=== PATIENT | male | born 1955 | race Caucasian/White ===

== ENCOUNTER 2019-06-20 09:22 | Inpatient (IN) | payer OTHER ==
[~2019-06-20] VITALS: Ht 175.3 cm; Wt 115.0 kg
[2019-06-20] MEDS ORDERED: METO-99 PO (09:50)
[2019-06-20] MEDS ORDERED: MELO15TA24 PO (09:50)
[2019-06-20] MEDS ORDERED: ALLO300T PO (09:50)
[2019-06-20] MEDS ORDERED: ATOR10TA9 PO (09:50)
[2019-06-20] MEDS ORDERED: AMLO10TA8 PO (09:50)
[2019-06-20] MEDS ORDERED: LISI5TAB7 PO (09:50)
[2019-06-20] MEDS ORDERED: GLIP5TAB10 PO (09:50)
--- NOTE | 2019-06-20 09:51 | NUR ---
Patient ambulatory with steady gait from triage. Reports RLQ x 3 days with decreased appetite. Denies fevers. NAD noted at time of assessment
[2019-06-20] MEDS ORDERED: ONDANSETRON 2MG/ML, 2ML IVPush ONE (10:30)
[2019-06-20] MEDS ORDERED: SODIUM CHLORIDE 0.9% 1,000ML IVBOLUS ONE ×2 (10:30→11:30)
[2019-06-20] MEDS ORDERED: HYDROmorphone 2 MG/ML, 1ML IVPush PRN (10:30)
[2019-06-20] MEDS ORDERED: SODIUM CHLORIDE FLUSH 10ML SYR IVF ONE (10:30)
[2019-06-20 10:55] LABS: MEAN CORPUSCULAR HEMOGLOBIN 30.8 pg (27.5-34.5); MEAN CORPUSCULAR HGB CONC 33.3 g/dL (33.2-36.2); MEAN CORPUSCULAR VOLUME 92.5 fL (81-97); MEAN PLATELET VOLUME 10.5 fL (7.4-10.4); PLATELET COUNT 125 x10^3/uL (130-400); RED CELL DISTRIBUTION WIDTH 14.8 % (9.4-14.8)
[2019-06-20] MEDS ORDERED: HYDROmorphone 1 MG/ML, 1ML VIAL ONE (10:59)
[2019-06-20] MEDS ORDERED: ONDANSETRON 2MG/ML, 2ML ONE (10:59)
[2019-06-20 11:06] LABS: ALANINE AMINOTRANSFERASE 23 U/L (12-78); ALBUMIN 3.7 g/dL (3.4-5.0); ANION GAP 10 mmol/L (5-15); CALCIUM 10.4 mg/dL (8.5-10.1); CHLORIDE 100 mmol/L (98-107); CREATININE 1.94 mg/dL (0.7-1.3)
[2019-06-20 11:08] LABS: ALKALINE PHOSPHATASE 79 U/L (45-117); BILIRUBIN,TOTAL 1.6 mg/dL (0.2-1.0); TOTAL PROTEIN 7.9 g/dL (6.4-8.2)
[2019-06-20 11:14] LABS: INTERNATIONAL NORMALIZED RATIO 1.15 (0.93-1.1)
[2019-06-20 11:17] LABS: MD YES
[2019-06-20 11:19] LABS: <PLATELET ESTIMATE> ADEQUATE; <RBC MORPHOLOGY> NORMAL; BAND#(MANUAL) 2.24 x10^3/uL; BANDS%(MANUAL) 15 % (0-7); LARGE PLATELETS 1+; LYMPH#(MANUAL) 1.19 x10^3/uL (1-3.4); LYMPHS% (MANUAL) 8 % (22-44); MONOS#(MANUAL) 0.15 x10^3/uL (0.3-2.7); MONOS% (MANUAL) 1 % (2-9); SEG#(MANUAL) 11.32 x10^3/uL (1.8-6.8); SEGS% (MANUAL) 76 % (42-75)
--- NOTE | 2019-06-20 11:28 | NUR ---
Patient O2 was 84% on RA, placed on 4L NC improved to 94% provider improved. IV infusing Patient watching football. NAD
[2019-06-20] MEDS ORDERED: PIPERACILLIN/TAZO/PMX 3.375GM 50 ML ONE (12:17)
[2019-06-20] MEDS ORDERED: OMNIPAQUE 350 MG/ML, 100ML BOTTLE ONE (12:18)
[2019-06-20] MEDS ORDERED: VANCOMYCIN PER PHARMACY MC ONE (12:30)
[2019-06-20] MEDS ORDERED: PIPERACILLIN/TAZO/PMX 3.375GM 50 ML IVPB ONE (12:30)
[2019-06-20] MEDS ORDERED: VANCOMYCIN 2,100 MG in SODIUM CHLORIDE 0.9% 500 ML IV ONE (13:00)
--- NOTE | 2019-06-20 13:17 | NUR ---
Patient resting in bed, watching football. NAD noted.
[2019-06-20] MEDS ORDERED: GUAIFENESIN/DM 200-20MG, 10ML UDC PO PRN (13:30)
[2019-06-20] MEDS ORDERED: ACETAMINOPHEN 650 MG SUPP PR PRN (13:30)
[2019-06-20] MEDS ORDERED: GLUCAGON 1 MG IM PRN (13:30)
[2019-06-20] MEDS ORDERED: ONDANSETRON 2MG/ML, 2ML IVPB PRN (13:30)
[2019-06-20] MEDS ORDERED: ONDANSETRON 2MG/ML, 2ML IVPush PRN (13:30)
[2019-06-20] MEDS ORDERED: LABETALOL 5 MG/ML SYR. (IV ONLY) IVPush PRN (13:30)
[2019-06-20] MEDS ORDERED: DEXTROSE 50%, 50ML SYRINGE IVPush PRN (13:30)
[2019-06-20] MEDS ORDERED: ACETAMINOPHEN 325 MG TABLET PO PRN (13:30)
[2019-06-20] MEDS ORDERED: DEXTROSE 4 GM TAB.CHEW PO PRN (13:30)
[2019-06-20] MEDS ORDERED: DOCUSATE 100 MG CAPSULE PO PRN (13:30)
[2019-06-20] MEDS ORDERED: PHARMACY MAY ADJ FOR RENAL FX MC PRN ×2 (13:30)
--- NOTE | 2019-06-20 13:57 | NUR ---
Resting in bed NAD watching football
[2019-06-20] MEDS ORDERED: PIPERACILLIN/TAZO/PMX 4.5GM 100 ML IVPB SCH (14:00)
--- NOTE | 2019-06-20 14:04 | NUR ---
Report given to Caden OJEDA on 4N
--- NOTE | 2019-06-20 14:30 | NUR ---
Transferred to floor with tech
[2019-06-20 14:43] VITALS: BP 120/74
[2019-06-20] MEDS: DOXYCYCLINE 100 MG in DEXTROSE 5% 250 ML IV SCH (15:26)
[2019-06-20] MEDS: morphine SULFATE 10 MG/ML, 1ML IVPush PRN ×2 (15:26→20:03)
[2019-06-20] MEDS: INSULIN LISPRO 100 UNITS/ML, PEN SQ-INSULIN SCH ×2 (16:11→19:59)
[2019-06-20] MEDS: PIPERACILLIN/TAZO/PMX 4.5GM 100 ML IVPB SCH ×2 (16:48→23:16)
[2019-06-20] MEDS: D5%-0.45% NACL 1,000 ML IV SCH (16:48)
[2019-06-20] MEDS: SODIUM CHLORIDE FLUSH 10ML SYR IVF SCH (20:00)
[2019-06-20 20:03] VITALS: BP 93/62
[2019-06-21 00:14] VITALS: BP 98/64
[2019-06-21] MEDS: DOXYCYCLINE 100 MG in DEXTROSE 5% 250 ML IV SCH ×2 (01:13→12:59)
[2019-06-21] MEDS: D5%-0.45% NACL 1,000 ML IV SCH ×2 (03:56→12:59)
[2019-06-21 05:06] LABS: MEAN CORPUSCULAR HEMOGLOBIN 31.1 pg (27.5-34.5); MEAN CORPUSCULAR VOLUME 94.3 fL (81-97); MEAN PLATELET VOLUME 10.2 fL (7.4-10.4); PLATELET COUNT 92 x10^3/uL (130-400); RED CELL DISTRIBUTION WIDTH 14.8 % (9.4-14.8)
[2019-06-21 05:12] LABS: ALANINE AMINOTRANSFERASE 21 U/L (12-78); ALBUMIN 2.9 g/dL (3.4-5.0); ANION GAP 6 mmol/L (5-15); CALCIUM 8.3 mg/dL (8.5-10.1); CHLORIDE 106 mmol/L (98-107); CREATININE 1.96 mg/dL (0.7-1.3)
[2019-06-21 05:15] LABS: ALKALINE PHOSPHATASE 53 U/L (45-117); BILIRUBIN,TOTAL 1.7 mg/dL (0.2-1.0); TOTAL PROTEIN 6.6 g/dL (6.4-8.2)
[2019-06-21] MEDS: PIPERACILLIN/TAZO/PMX 4.5GM 100 ML IVPB SCH ×4 (05:43→23:23)
[2019-06-21 05:55] LABS: BAND#(MANUAL) 0.26 x10^3/uL; BANDS%(MANUAL) 2 % (0-7); LYMPH#(MANUAL) 1.58 x10^3/uL (1-3.4); LYMPHS% (MANUAL) 12 % (22-44); MD YES; MONOS#(MANUAL) 0.26 x10^3/uL (0.3-2.7); MONOS% (MANUAL) 2 % (2-9); SEG#(MANUAL) 11.09 x10^3/uL (1.8-6.8); SEGS% (MANUAL) 84 % (42-75)
[2019-06-21 05:57] LABS: <PLATELET ESTIMATE> DECREASED; ANISOCYTOSIS 1+; POLYCHROMASIA 1+; TEAR DROPS 1+
[2019-06-21 05:58] LABS: <PLT MORPHOLOGY> NORMAL PLT MORPH
[2019-06-21] MEDS: INSULIN LISPRO 100 UNITS/ML, PEN SQ-INSULIN SCH ×4 (07:00→21:50)
[2019-06-21 08:28] VITALS: BP 111/74
[2019-06-21] MEDS: SODIUM CHLORIDE FLUSH 10ML SYR IVF SCH ×2 (09:00→21:00)
[2019-06-21 12:15] VITALS: BP 114/72
[2019-06-21] MEDS ORDERED: PHARMACY MAY ADJ FOR RENAL FX MC PRN (14:30)
[2019-06-21] MEDS ORDERED: hydrALAzine 20 MG/ML, 1ML IV PRN (15:00)
[2019-06-21] MEDS: D5%-0.45NACL+KCL 20MEQ 1,000 ML IV SCH (17:16)
[2019-06-21 18:23] LABS: CHLORIDE,URINE RANDOM 37 mmol/L; POTASSIUM,URINE RANDOM 36 mmol/L; SODIUM,URINE RANDOM 45 mmol/L
[2019-06-21 18:24] LABS: MICROSCOPIC INDICATED
[2019-06-21] MEDS: morphine SULFATE 10 MG/ML, 1ML IVPush PRN ×2 (18:43→22:03)
[2019-06-21 18:44] LABS: CULTURE INDICATED? NO
[2019-06-21 18:46] VITALS: BP 113/70
[2019-06-22 00:13] VITALS: BP 119/74
[2019-06-22] MEDS: DOXYCYCLINE 100 MG in DEXTROSE 5% 250 ML IV SCH (01:55)
[2019-06-22] MEDS: D5%-0.45NACL+KCL 20MEQ 1,000 ML IV SCH (03:11)
[2019-06-22] MEDS: PIPERACILLIN/TAZO/PMX 4.5GM 100 ML IVPB SCH (05:02)
[2019-06-22 05:43] LABS: ALANINE AMINOTRANSFERASE 20 U/L (12-78); ALBUMIN 2.6 g/dL (3.4-5.0); ANION GAP 5 mmol/L (5-15); CALCIUM 8.5 mg/dL (8.5-10.1); CHLORIDE 105 mmol/L (98-107); CREATININE 1.18 mg/dL (0.7-1.3)
[2019-06-22 05:46] LABS: ALKALINE PHOSPHATASE 60 U/L (45-117); BILIRUBIN,TOTAL 1.1 mg/dL (0.2-1.0); TOTAL PROTEIN 6.8 g/dL (6.4-8.2)
[2019-06-22] MEDS: morphine SULFATE 10 MG/ML, 1ML IVPush PRN ×2 (06:01→17:48)
[2019-06-22 06:21] LABS: MD YES; MEAN CORPUSCULAR HGB CONC 32.6 g/dL (33.2-36.2); MEAN CORPUSCULAR VOLUME 95.2 fL (81-97); RED BLOOD COUNT 4.54 x10^6/uL (4.38-5.82); RED CELL DISTRIBUTION WIDTH 14.8 % (9.4-14.8)
[2019-06-22 06:23] LABS: BAND#(MANUAL) 1.19 x10^3/uL; BANDS%(MANUAL) 11 % (0-7); LYMPHS% (MANUAL) 13 % (22-44); MONOS#(MANUAL) 0.76 x10^3/uL (0.3-2.7); MONOS% (MANUAL) 7 % (2-9); SEG#(MANUAL) 7.45 x10^3/uL (1.8-6.8); SEGS% (MANUAL) 69 % (42-75)
[2019-06-22 06:28] LABS: ANISOCYTOSIS 1+
[2019-06-22 06:31] LABS: MEAN PLATELET VOLUME 10.3 fL (7.4-10.4)
[2019-06-22 06:32] LABS: <PLATELET ESTIMATE> DECREASED; <PLT MORPHOLOGY> NORMAL PLT MORPH; BASOPHILS # (AUTO) 0.01 x10^3/uL (0-0.1); BASOPHILS % (AUTO) 0 % (0-1); EOSINOPHILS # (AUTO) 0.02 x10^3/uL (0-0.4); EOSINOPHILS % (AUTO) 0 % (1-7); LYMPHOCYTES % (AUTO) 5 % (22-44); MONOCYTES # (AUTO) 0.59 x10^3/uL (0.2-0.8); MONOCYTES % (AUTO) 6 % (2-9); NEUTROPHILS # (AUTO) 9.65 x10^3/uL (1.8-6.8); NEUTROPHILS % (AUTO) 90 % (42-75); PLATELET COUNT 86 x10^3/uL (130-400)
[2019-06-22 07:22] VITALS: BP 120/78
[2019-06-22] MEDS: INSULIN LISPRO 100 UNITS/ML, PEN SQ-INSULIN SCH ×4 (08:20→22:17)
[2019-06-22] MEDS: SODIUM CHLORIDE FLUSH 10ML SYR IVF SCH ×2 (08:21→21:00)
[2019-06-22] MEDS ORDERED: D5%-0.45NACL+KCL 20MEQ 1,000 ML IV SCH (09:30)
[2019-06-22] MEDS ORDERED: MAGNESIUM SULFATE PMX 2GM/50ML 50 ML IV ONE (10:00)
[2019-06-22] MEDS ORDERED: SODIUM PHOSPHATE 30 MMOL in SODIUM CHLORIDE 0.9% 500 ML IV ONE (10:00)
[2019-06-22] MEDS: MEROPENEM 500 MG in SODIUM CHLORIDE 0.9% 100 ML IV SCH ×2 (10:12→17:48)
[2019-06-22 13:57] VITALS: BP 122/68
[2019-06-22 19:29] VITALS: BP 134/81
[2019-06-23] MEDS: MEROPENEM 500 MG in SODIUM CHLORIDE 0.9% 100 ML IV SCH ×3 (02:08→18:37)
[2019-06-23 02:55] VITALS: BP 115/73
[2019-06-23 05:53] LABS: CHLORIDE 104 mmol/L (98-107)
[2019-06-23 05:58] LABS: ANION GAP 5 mmol/L (5-15); CALCIUM 8.5 mg/dL (8.5-10.1); CREATININE 0.87 mg/dL (0.7-1.3)
[2019-06-23] MEDS: morphine SULFATE 10 MG/ML, 1ML IVPush PRN ×2 (06:00→15:24)
[2019-06-23 06:01] LABS: MEAN CORPUSCULAR HEMOGLOBIN 30.9 pg (27.5-34.5); MEAN CORPUSCULAR HGB CONC 32.8 g/dL (33.2-36.2); MEAN CORPUSCULAR VOLUME 94.2 fL (81-97); PLATELET COUNT 104 x10^3/uL (130-400); RED BLOOD COUNT 4.41 x10^6/uL (4.38-5.82); RED CELL DISTRIBUTION WIDTH 14.6 % (9.4-14.8)
[2019-06-23 06:28] LABS: BASOPHILS % (AUTO) 0 % (0-1); EOSINOPHILS # (AUTO) 0.05 x10^3/uL (0-0.4); EOSINOPHILS % (AUTO) 1 % (1-7); LYMPHOCYTES # (AUTO) 0.53 x10^3/uL (1-3.4); LYMPHOCYTES % (AUTO) 5 % (22-44); MD SCAN; MONOCYTES # (AUTO) 0.82 x10^3/uL (0.2-0.8); MONOCYTES % (AUTO) 8 % (2-9); NEUTROPHILS # (AUTO) 8.48 x10^3/uL (1.8-6.8); NEUTROPHILS % (AUTO) 86 % (42-75)
[2019-06-23] MEDS ORDERED: SODIUM PHOSPHATE 30 MMOL in SODIUM CHLORIDE 0.9% 500 ML IV ONE (06:30)
[2019-06-23 07:01] VITALS: BP 136/82
[2019-06-23] MEDS: INSULIN LISPRO 100 UNITS/ML, PEN SQ-INSULIN SCH ×4 (08:22→20:33)
[2019-06-23] MEDS: SODIUM CHLORIDE FLUSH 10ML SYR IVF SCH ×2 (09:00→20:37)
[2019-06-23] MEDS ORDERED: LISINOPRIL 10 MG TABLET PO SCH (10:00)
[2019-06-23 13:41] VITALS: BP 139/89
[2019-06-23 19:32] VITALS: BP 137/83
[2019-06-23] MEDS: ATORVASTATIN 40 MG TABLET HOMEMEDPO SCH (20:37)
[2019-06-23] MEDS ORDERED: ATORVASTATIN 40 MG TABLET PO SCH (21:00)
[2019-06-24 01:46] VITALS: BP 114/74
[2019-06-24] MEDS: MEROPENEM 500 MG in SODIUM CHLORIDE 0.9% 100 ML IV SCH ×3 (01:48→17:56)
[2019-06-24] MEDS ORDERED: MORPHINE SULFATE 4 MG/ML, 1ML ONE (01:54)
[2019-06-24] MEDS: morphine SULFATE 10 MG/ML, 1ML IVPush PRN ×3 (01:56→14:30)
[2019-06-24] MEDS ORDERED: CALCIUM CARBONATE 500 MG TAB.CHEW PO PRN (02:30)
[2019-06-24] MEDS: INSULIN LISPRO 100 UNITS/ML, PEN SQ-INSULIN SCH ×4 (07:00→19:54)
[2019-06-24 08:07] VITALS: BP 122/78
[2019-06-24] MEDS: SODIUM CHLORIDE FLUSH 10ML SYR IVF SCH ×2 (08:10→19:51)
[2019-06-24] MEDS: LISINOPRIL 10 MG TABLET HOMEMEDPO SCH (08:10)
[2019-06-24] MEDS ORDERED: D5%-0.45NACL+KCL 20MEQ 1,000 ML IV SCH (09:30)
[2019-06-24] MEDS: D5%-0.45NACL+KCL 20MEQ 1,000 ML IV SCH (09:34)
[2019-06-24 13:33] VITALS: BP 128/79
[2019-06-24] MEDS: OXYcodone IR 5MG TABLET PO PRN ×2 (17:56→23:55)
[2019-06-24 19:20] VITALS: BP 124/72
[2019-06-24] MEDS: ATORVASTATIN 40 MG TABLET HOMEMEDPO SCH (19:51)
[2019-06-25] MEDS: MEROPENEM 500 MG in SODIUM CHLORIDE 0.9% 100 ML IV SCH ×2 (02:02→09:27)
[2019-06-25 02:04] VITALS: BP 145/79
[2019-06-25] MEDS: morphine SULFATE 10 MG/ML, 1ML IVPush PRN ×4 (04:33→22:11)
[2019-06-25 04:38] LABS: BASOPHILS # (AUTO) 0.01 x10^3/uL (0-0.1); BASOPHILS % (AUTO) 0 % (0-1); EOSINOPHILS # (AUTO) 0.16 x10^3/uL (0-0.4); EOSINOPHILS % (AUTO) 2 % (1-7); LYMPHOCYTES # (AUTO) 0.58 x10^3/uL (1-3.4); LYMPHOCYTES % (AUTO) 7 % (22-44); MD NO; MEAN CORPUSCULAR HEMOGLOBIN 30.7 pg (27.5-34.5); MEAN CORPUSCULAR HGB CONC 32.6 g/dL (33.2-36.2); MEAN PLATELET VOLUME 9.8 fL (7.4-10.4); MONOCYTES % (AUTO) 9 % (2-9); NEUTROPHILS # (AUTO) 7.18 x10^3/uL (1.8-6.8); NEUTROPHILS % (AUTO) 82 % (42-75); PLATELET COUNT 149 x10^3/uL (130-400); RED BLOOD COUNT 4.05 x10^6/uL (4.38-5.82); RED CELL DISTRIBUTION WIDTH 14.6 % (9.4-14.8)
[2019-06-25 04:44] LABS: ANION GAP 4 mmol/L (5-15); CALCIUM 8.5 mg/dL (8.5-10.1); CHLORIDE 105 mmol/L (98-107)
[2019-06-25 04:46] LABS: CREATININE 0.74 mg/dL (0.7-1.3)
[2019-06-25] MEDS: D5%-0.45NACL+KCL 20MEQ 1,000 ML IV SCH (06:09)
[2019-06-25] MEDS: INSULIN LISPRO 100 UNITS/ML, PEN SQ-INSULIN SCH ×4 (06:43→20:52)
[2019-06-25 08:35] VITALS: BP 150/89
[2019-06-25] MEDS: SODIUM CHLORIDE FLUSH 10ML SYR IVF SCH ×2 (09:00→20:34)
[2019-06-25] MEDS: LISINOPRIL 10 MG TABLET HOMEMEDPO SCH (09:27)
[2019-06-25] MEDS: CEFTRIAXONE PMX 2GM/50ML 50 ML IV SCH (11:21)
[2019-06-25] MEDS: metroNIDAZOLE 500 MG TABLET PO SCH ×2 (11:21→20:34)
[2019-06-25 13:15] VITALS: BP 162/88
[2019-06-25] MEDS: OXYcodone IR 5MG TABLET PO PRN (17:28)
[2019-06-25 19:06] VITALS: BP 147/79
[2019-06-25] MEDS: ATORVASTATIN 40 MG TABLET HOMEMEDPO SCH (20:34)
[2019-06-26] MEDS: morphine SULFATE 10 MG/ML, 1ML IVPush PRN (02:34)
[2019-06-26 02:47] VITALS: BP 144/84
[2019-06-26] MEDS: metroNIDAZOLE 500 MG TABLET PO SCH ×3 (04:58→20:12)
[2019-06-26 06:13] VITALS: BP 138/77
[2019-06-26] MEDS: OXYcodone IR 5MG TABLET PO PRN (06:38)
[2019-06-26] MEDS: INSULIN LISPRO 100 UNITS/ML, PEN SQ-INSULIN SCH ×4 (07:00→20:32)
[2019-06-26] MEDS: CEFTRIAXONE PMX 2GM/50ML 50 ML IV SCH (09:28)
[2019-06-26] MEDS: SODIUM CHLORIDE FLUSH 10ML SYR IVF SCH ×2 (09:29→20:33)
[2019-06-26] MEDS: LISINOPRIL 10 MG TABLET HOMEMEDPO SCH (09:29)
[2019-06-26 13:00] VITALS: BP 113/67
[2019-06-26 19:45] VITALS: BP 162/96
[2019-06-26] MEDS: ATORVASTATIN 40 MG TABLET HOMEMEDPO SCH (20:12)
[2019-06-27 03:55] VITALS: BP 136/84
[2019-06-27] MEDS: metroNIDAZOLE 500 MG TABLET PO SCH ×3 (04:37→20:11)
[2019-06-27] MEDS: INSULIN LISPRO 100 UNITS/ML, PEN SQ-INSULIN SCH ×4 (07:00→20:11)
[2019-06-27 07:25] VITALS: BP_SYST 130; BP_SYST 136; BP_DIAS 81; BP_DIAS 84
[2019-06-27] MEDS: LISINOPRIL 10 MG TABLET HOMEMEDPO SCH (08:43)
[2019-06-27] MEDS: SODIUM CHLORIDE FLUSH 10ML SYR IVF SCH ×2 (08:48→20:11)
[2019-06-27] MEDS ORDERED: METR500T PO (09:57)
[2019-06-27] MEDS: CEFTRIAXONE PMX 2GM/50ML 50 ML IV SCH (10:17)
[2019-06-27] MEDS: OXYcodone IR 5MG TABLET PO PRN (10:21)
[2019-06-27] MEDS: MELOXICAM 15 MG TABLET PO SCH (10:22)
[2019-06-27 13:18] VITALS: BP 119/72
[2019-06-27 18:46] VITALS: BP 147/83
[2019-06-27] MEDS: ATORVASTATIN 40 MG TABLET HOMEMEDPO SCH (20:11)
[2019-06-28 00:53] VITALS: BP 151/86
[2019-06-28] MEDS: metroNIDAZOLE 500 MG TABLET PO SCH (04:02)
[2019-06-28 04:34] LABS: MEAN CORPUSCULAR HEMOGLOBIN 30.1 pg (27.5-34.5); MEAN CORPUSCULAR HGB CONC 32.5 g/dL (33.2-36.2); MEAN CORPUSCULAR VOLUME 92.6 fL (81-97); MEAN PLATELET VOLUME 8.8 fL (7.4-10.4); PLATELET COUNT 234 x10^3/uL (130-400); RED CELL DISTRIBUTION WIDTH 14.1 % (9.4-14.8)
[2019-06-28 04:39] LABS: ANION GAP 4 mmol/L (5-15); CALCIUM 8.5 mg/dL (8.5-10.1); CHLORIDE 108 mmol/L (98-107); CREATININE 0.72 mg/dL (0.7-1.3)
[2019-06-28 04:58] LABS: BASOPHILS # (AUTO) 0.02 x10^3/uL (0-0.1); BASOPHILS % (AUTO) 0 % (0-1); EOSINOPHILS # (AUTO) 0.25 x10^3/uL (0-0.4); EOSINOPHILS % (AUTO) 3 % (1-7); LYMPHOCYTES # (AUTO) 0.77 x10^3/uL (1-3.4); LYMPHOCYTES % (AUTO) 10 % (22-44); MD SCAN; MONOCYTES # (AUTO) 0.54 x10^3/uL (0.2-0.8); MONOCYTES % (AUTO) 7 % (2-9); NEUTROPHILS % (AUTO) 80 % (42-75)
[2019-06-28 07:10] VITALS: BP 131/76
[2019-06-28] MEDS: INSULIN LISPRO 100 UNITS/ML, PEN SQ-INSULIN SCH (07:25)
[2019-06-28] MEDS ORDERED: ALLOPURINOL 300 MG TABLET PO SCH (09:00)
[2019-06-28] MEDS: MELOXICAM 15 MG TABLET PO SCH (10:22)
[2019-06-28] MEDS: CEFTRIAXONE PMX 2GM/50ML 50 ML IV SCH (10:22)
[2019-06-28] MEDS: LISINOPRIL 10 MG TABLET HOMEMEDPO SCH (10:22)
[2019-06-28] MEDS: SODIUM CHLORIDE FLUSH 10ML SYR IVF SCH (10:23)
[2019-06-28] MEDS ORDERED: OXYC5TAB2 PO (11:55)
== END 2019-06-28 12:00 | disposition home or self-care (01) | DRG 871 ==
LOC: ED 10:50 → EDIP 12:38 → 4NE 14:25 → 3N 06-24 11:06 → DCLOUNGE 06-28 11:53
PROVIDERS: ADMIT Internal Medicine; ATTEND Hospitalist
PROC: 02HV33Z Insertion of Infusion Device into Superior Vena Cava, Percutaneous Approach (ICD-10-PCS; principal; 2019-06-25)
PROC: B5181ZA Fluoroscopy of Superior Vena Cava using Low Osmolar Contrast, Guidance (ICD-10-PCS; 2019-06-25)
PROC: B548ZZA Ultrasonography of Superior Vena Cava, Guidance (ICD-10-PCS; 2019-06-25)
DX: A41.51 Sepsis due to Escherichia coli [E. coli] (principal); K35.32 Acute appendicitis with perforation, localized peritonitis, and gangrene, without abscess; J96.01 Acute respiratory failure with hypoxia; N17.0 Acute kidney failure with tubular necrosis; J15.9 Unspecified bacterial pneumonia; E87.1 Hypo-osmolality and hyponatremia; R65.20 Severe sepsis without septic shock; E11.9 Type 2 diabetes mellitus without complications; Z60.2 Problems related to living alone; M10.9 Gout, unspecified; E66.01 Morbid (severe) obesity due to excess calories; D69.6 Thrombocytopenia, unspecified; E83.52 Hypercalcemia; K38.1 Appendicular concretions; G47.33 Obstructive sleep apnea (adult) (pediatric); K56.41 Fecal impaction; K70.30 Alcoholic cirrhosis of liver without ascites; E86.0 Dehydration; E88.09 Other disorders of plasma-protein metabolism, not elsewhere classified; F17.210 Nicotine dependence, cigarettes, uncomplicated; D63.8 Anemia in other chronic diseases classified elsewhere; I10 Essential (primary) hypertension; Z84.1 Family history of disorders of kidney and ureter; Z72.89 Other problems related to lifestyle; Z82.49 Family history of ischemic heart disease and other diseases of the circulatory system; Z71.6 Tobacco abuse counseling; Z79.84 Long term (current) use of oral hypoglycemic drugs; Z79.899 Other long term (current) drug therapy; Z68.37 Body mass index [BMI] 37.0-37.9, adult
CPT/HCPCS: 36415; 36573; 71045; 74177; 80048; 80053; 81001; 82330; 82436; 82962; 83036; 83605; 83735; 84100; 84133; 84145; 84300; 85025; 85610; 87040; 87070; 87077; 87147; 87186; 87205; 93005; 96374; 96375; 99291; G0378; J0696; J1170; J2185; J2405; J2543; J3370; J7060; Q9967; C1751; J1815; J2270; J3475; J3480; J7030; J7040

== ENCOUNTER 2019-08-07 12:26 | Outpatient (CLI) | payer MEDICARE, OTHER ==
[~2019-08-07 12:26] MED LIST: ALLO300T PO; AMLO10TA8 PO; ATOR10TA9 PO; GLIP5TAB10 PO; LISI5TAB7 PO; MELO15TA24 PO; METO-99 PO; METR500T PO; OXYC5TAB2 PO
[2019-08-07] MEDS ORDERED: CHOL2000 PO (13:54)
== END 2019-08-07 23:59 | disposition home or self-care (01) ==
LOC: STAR 12:26
PROVIDERS: ATTEND Student in an Organized Health Care Education/Training Program
DX: Z01.818 Encounter for other preprocedural examination (principal)
CPT/HCPCS: 93005

== ENCOUNTER 2019-08-12 05:18 | Day surgery (SDC) | payer MEDICARE, OTHER ==
[~2019-08-12] VITALS: Ht 175.3 cm; Wt 110.6 kg
[~2019-08-12 05:18] MED LIST changes: +CHOL2000 PO
[2019-08-12] MEDS ORDERED: LACTATED RINGERS 1,000 ML IV SCH (05:43)
[2019-08-12] MEDS ORDERED: LIDOCAINE-MPF 1%, 2ML INFIL ONE (06:00)
[2019-08-12 06:02] VITALS: BP 121/82
[2019-08-12] MEDS ORDERED: EPINEPHRINE 1 MG/ML, 1ML ONE (06:38)
[2019-08-12] MEDS ORDERED: BUPIVACAINE/PF 0.5% ONE (06:38)
[2019-08-12] MEDS ORDERED: ACETAMINOPHEN 500 MG TABLET ONE (06:42)
[2019-08-12] MEDS ORDERED: GABAPENTIN 300 MG CAPSULE PO ONE (07:00)
[2019-08-12] MEDS ORDERED: LABETALOL 5MG/ML, 20ML IV PRN (07:00)
[2019-08-12] MEDS ORDERED: HYDROmorphone 2 MG/ML, 1ML IVPush PRN (07:00)
[2019-08-12] MEDS ORDERED: ONDANSETRON 2MG/ML, 2ML IV PRN (07:00)
[2019-08-12] MEDS ORDERED: MORPHINE SULFATE 4 MG/ML, 1ML IVPush PRN (07:00)
[2019-08-12] MEDS ORDERED: hydrALAzine 20 MG/ML, 1ML IV PRN (07:00)
[2019-08-12] MEDS ORDERED: MEPERIDINE/PF 25MG/ML,1ML IVPush PRN (07:00)
[2019-08-12] MEDS ORDERED: FENTANYL PF 100 MCG/2ML IV PRN (07:00)
[2019-08-12] MEDS ORDERED: ACETAMINOPHEN 500 MG TABLET PO ONE (07:00)
[2019-08-12] MEDS ORDERED: OXYcodone 5 MG/5 ML ORAL.SOL UDC PO PRN (07:00)
[2019-08-12] MEDS ORDERED: MIDAZOLAM 1 MG/ML, 2ML ONE (07:07)
[2019-08-12] MEDS ORDERED: FENTANYL PF 250 MCG/5ML ONE (07:07)
[2019-08-12] MEDS ORDERED: CEFOTETAN PMX 2GM/50ML 50 ML ONE (07:11)
[2019-08-12] MEDS ORDERED: PROPOFOL 10 MG/ML, 20ML ONE (07:13)
[2019-08-12] MEDS ORDERED: PHENYLEPHRINE 10 MG/ML ONE (07:13)
[2019-08-12] MEDS ORDERED: ROCURONIUM 10MG/ML,5ML ONE (07:13)
[2019-08-12] MEDS ORDERED: NEOSTIGMINE 1 MG/ML, 10ML ONE (07:13)
[2019-08-12] MEDS ORDERED: GLYCOPYRROLATE 0.2MG/1ML, 5ML ONE (07:13)
[2019-08-12] MEDS ORDERED: KETOROLAC 30 MG/1 ML ONE ×2 (07:32)
[2019-08-12] MEDS ORDERED: MEPERIDINE/PF 25MG/ML,1ML ONE (08:59)
[2019-08-12] MEDS ORDERED: OXYcodone 5 MG/5 ML ORAL.SOL UDC ONE (09:00)
== END 2019-08-12 18:15 | disposition home or self-care (01) ==
LOC: OR 05:18 → OUT 18:15
PROVIDERS: ATTEND Student in an Organized Health Care Education/Training Program
DX: K36 Other appendicitis (principal); K38.1 Appendicular concretions; K42.9 Umbilical hernia without obstruction or gangrene; E78.00 Pure hypercholesterolemia, unspecified; I10 Essential (primary) hypertension; F10.21 Alcohol dependence, in remission; F17.210 Nicotine dependence, cigarettes, uncomplicated; E11.9 Type 2 diabetes mellitus without complications; Z79.899 Other long term (current) drug therapy; Z79.84 Long term (current) use of oral hypoglycemic drugs; Z88.8 Allergy status to other drugs, medicaments and biological substances
CPT/HCPCS: 44970; 49585; 82962; 88304; J0171; J1885; J2175; J2250; J2370; J2704; J2710; J3010; J3490; J7120